=== PATIENT | male | born 1995 | race Caucasian/White ===

== ENCOUNTER 2018-01-11 20:09 | Emergency (ER) | payer BC ==
[2018-01-11 21:01] VITALS: BP 140/73
[2018-01-11] MEDS ORDERED: Amoxicillin/Clavulanate TAB* 875 MG PO ONE (21:33)
[2018-01-11] MEDS ORDERED: Nystatin SUSPENSION* 100000 UNITS/ML 5 ML UDC PO ONE ×2 (21:39→21:45)
--- NOTE | 2018-01-11 21:39 | UC ---
Throat Pain/Nasal Mehrdad HPI - HPI Summary HPI Summary: 23-year-old male who comes to clinic for 2 days of sore throat. He still has white spots back of his throat. He does have some nasal congestion. No cough no fevers. No abdominal pain. It hurts to swallow. - History of Current Complaint Chief Complaint: UCRespiratory Stated Complaint: SORE THROAT Time Seen by Provider: 01/11/18 20:56 Pain Intensity: 4 - Allergies/Home Medications Allergies/Adverse Reactions: Allergies Allergy/AdvReac Type Severity Reaction Status Date / Time No Known Allergies Allergy Verified 01/11/18 20:56 PMH/Surg Hx/FS Hx/Imm Hx Previously Healthy: Yes - Surgical History Surgical History: None - Family History Known Family History: Positive: None - Social History Alcohol Use: Weekly Substance Use Type: None Smoking Status (MU): Never Smoked Tobacco Review of Systems Constitutional: Negative Skin: Negative Eyes: Negative ENT: Sore Throat, Sinus Congestion Respiratory: Negative Cardiovascular: Negative Gastrointestinal: Negative Genitourinary: Negative Motor: Negative Neurovascular: Negative Musculoskeletal: Negative Neurological: Negative Psychological: Negative Is Patient Immunocompromised?: No All Other Systems Reviewed And Are Negative: Yes Physical Exam Triage Information Reviewed: Yes Appearance: Well-Appearing, No Pain Distress, Well-Nourished Vital Signs: Initial Vital Signs Temp 97.6 F 01/11/18 20:57 Pulse 81 01/11/18 20:57 Resp 17 01/11/18 20:57 BP 140/73 01/11/18 20:57 Pulse Ox 100 01/11/18 20:57 Vital Signs Reviewed: Yes Eyes: Positive: Conjunctiva Clear ENT Exam: Normal ENT: Positive: Pharyngeal erythema, Nasal congestion, Other - WHITE [place] IN BACK OF THROAT Dental Exam: Normal Neck exam: Normal Neck: Positive: Supple Respiratory Exam: Normal Respiratory: Positive: Lungs clear, Normal breath sounds, No respiratory distress Cardiovascular: Positive: RRR Abdominal Exam: Normal Musculoskeletal Exam: Normal Musculoskeletal: Positive: Strength Intact, ROM Intact Neurological Exam: Normal Psychological Exam: Normal Skin Exam: Normal Throat Pain/Nasal Course/Dx - Course Course Of Treatment: DISCUSSED VIRAL VERSES BACTERIAL INFECTION AND THE ROLE OF ANTIBIOTICS. THE PATIENT WISHES TO BE ON ANTIBIOTICS AT THIS TIME. We'll also treat with nystatin for thrush - Differential Dx/Diagnosis Provider Diagnoses: ORAL THRUSH. PHARYNGITIS Discharge - Sign-Out/Discharge Documenting (check all that apply): Patient Departure All imaging exams completed and their final reports reviewed: No Studies - Discharge Plan Condition: Stable Disposition: HOME Prescriptions: Amoxicillin PO (*) [Amoxicillin 875 MG (*)] 875 mg PO BID #19 tab Nystatin SUSPENSION* 500,000 units PO QID #200 ml Patient Education Materials: Pharyngitis (ED), Oral Candidiasis (ED) Referrals: [facility] [Outside] Additional Instructions: FOLLOW UP WITH [facility]. GET RECHECKED FOR ANY WORSENING OF YOUR CONDITION OR QUESTIONS OR CONCERNS. - Billing Disposition and Condition Condition: STABLE Disposition: Home - Attestation Statements Document Initiated by Scribe: No
[2018-01-12] MEDS ORDERED: Nystatin SUSPENSION* 100000 UNITS/ML 5 ML UDC PO ONE ×2 (09:00)
== END 2018-01-11 21:54 | disposition home or self-care (01) ==
LOC: UCCORT 20:09
DX: B37.0 Candidal stomatitis (principal); J02.9 Acute pharyngitis, unspecified
CPT/HCPCS: 87651; 99203; A9270-GY; G0463